=== PATIENT | female | born 1975 | race Caucasian/White ===

== ENCOUNTER 2023-11-23 06:20 | Day surgery (SDC) | payer OTHER, SELFPAY ==
[2023-10-29 08:59] LABS: Hematocrit 39.3 % (37.0-47.0); Mean Corp Hgb Conc. 33.1 g/dL (33.0-37.0); Mean Corpuscular Volume 81.5 fL (81.0-99.0); Mean Platelet Volume 10.7 fL (7.4-10.4); Platelet Count 384 10^3/uL (130-400); Red Blood Cell Count 4.82 10^6/uL (4.20-5.40); Red Cell Dist. Width 13.1 % (11.5-14.5); White Blood Cell Count 8.8 10^3/uL (4.8-10.8)
[2023-10-29 09:32] LABS: ALT (SGPT) 22 U/L (0-35); AST (SGOT) 25 U/L (14-36); Albumin 4.1 g/dl (3.5-5.0); Alkaline Phosphatase 72 U/L (38-126); Blood Urea Nitrogen 18 mg/dl (7-17); Carbon Dioxide 22 mmol/L (22-30); Chloride 108 mmol/L (98-107); Glucose 78 mg/dl (70-99); Potassium 4.1 mmol/L (3.5-5.1); Sodium 138 mmol/L (135-145); Total Bilirubin 0.7 mg/dl (0.2-1.3); Total Protein 6.7 g/dl (6.3-8.2); eGFR > 60.00
[2023-11-23] MEDS: TYLENOL 1000 MG PO (10:28)
[2023-11-23] MEDS: NORMOSOL-R 1000 IV (10:28)
[2023-11-23 10:29] LABS: Glucose - Point of Care 111 mg/dl (70-99)
[2023-11-23 14:12] LABS: Glucose - Point of Care 140 mg/dl (70-99)
[2023-11-23] MEDS: DILAUDID 0.5 MG IV (14:21)
[2023-11-23] MEDS: DILAUDID 0.25 MG IV (14:38)
[2023-11-23] MEDS: ROXICODONE 5 MG PO (15:45)
== END 2023-11-23 16:50 | disposition home or self-care (01) ==
LOC: SDS 06:20
PROVIDERS: ATTENDING PHYSICIAN Surgery; FAMILY PHYSICIAN Nurse Practitioner Adult Health
DX: K80.10 Calculus of gallbladder with chronic cholecystitis without obstruction (principal); K66.0 Peritoneal adhesions (postprocedural) (postinfection)
CPT/HCPCS: 47563; 88304; 36415; 74300; 76000; 80053; 82962; 85027; 93005

== ENCOUNTER → 2023-12-03 06:45 | Outpatient (REF) | payer OTHER, SELFPAY | LOC: HWRAD 06:45 | PROVIDERS: ATTENDING PHYSICIAN Nurse Practitioner Adult Health | DX: E04.1 Nontoxic single thyroid nodule (principal) | CPT/HCPCS: 76536 ==

== ENCOUNTER → 2023-12-26 09:24 | Outpatient (REF) | payer OTHER, SELFPAY ==
[2023-12-26 10:12] VITALS: BP 117/79; BP_SYST 76
== END ==
LOC: RADI 09:24
PROVIDERS: ATTENDING PHYSICIAN Nurse Practitioner Adult Health
DX: E04.1 Nontoxic single thyroid nodule (principal)
CPT/HCPCS: 88173; 10005

== ENCOUNTER → 2024-08-06 09:46 | Outpatient (REF) | payer BC, SELFPAY | LOC: HWWDC 09:46 | PROVIDERS: ATTENDING PHYSICIAN Advanced Practice Midwife; FAMILY PHYSICIAN Nurse Practitioner Adult Health; REFERRING PHYSICIAN Obstetrics & Gynecology | DX: Z12.31 Encounter for screening mammogram for malignant neoplasm of breast (principal); N95.0 Postmenopausal bleeding | CPT/HCPCS: 76830; 76856; 77063; 77067 ==

== ENCOUNTER 2024-11-21 06:15 | Day surgery (SDC) | payer BC, SELFPAY ==
[2024-11-17 11:19] LABS: Hematocrit 40.2 % (37.0-47.0); Mean Corp Hgb Conc. 32.3 g/dL (33.0-37.0); Mean Corpuscular Hgb 27.3 pg (27.0-31.0); Mean Corpuscular Volume 84.3 fL (81.0-99.0); Mean Platelet Volume 10.7 fL (7.4-10.4); Platelet Count 334 10^3/uL (130-400); Red Blood Cell Count 4.77 10^6/uL (4.20-5.40); Red Cell Dist. Width 13.3 % (11.5-14.5); White Blood Cell Count 8.7 10^3/uL (4.8-10.8)
[2024-11-17 12:14] LABS: Blood Urea Nitrogen 18 mg/dl (7-17); Calcium 9.4 mg/dl (8.4-10.2); Carbon Dioxide 26 mmol/L (22-30); Chloride 103 mmol/L (98-107); Glucose 96 mg/dl (70-99); Potassium 4.2 mmol/L (3.5-5.1); Sodium 140 mmol/L (135-145); eGFR > 60.00
[2024-11-17 14:14] VITALS: BMI 36.4
[2024-11-21 08:17] VITALS: BMI 36.4
[2024-11-21 08:30] VITALS: BMI 36.4
[2024-11-21] MEDS: TYLENOL 1000 MG PO (08:39)
[2024-11-21 08:45] VITALS: BP 134/79
[2024-11-21 08:57] LABS: Glucose - Point of Care 103 mg/dl (70-99)
[2024-11-21] MEDS: NORMOSOL-R/PLASMALYTE-A 1000 IV (08:59)
[2024-11-21 10:54] VITALS: BP 131/78; BP 134/79
[2024-11-21 11:00] VITALS: BP 127/79
[2024-11-21 11:15] VITALS: BP 113/76
[2024-11-21 11:32] LABS: Glucose - Point of Care 97 mg/dl (70-99)
[2024-11-21 11:45] VITALS: BP 116/66
[2024-11-21 12:00] VITALS: BP 112/71
== END 2024-11-21 12:20 | disposition home or self-care (01) ==
LOC: SDS 06:15
PROVIDERS: ATTENDING PHYSICIAN Obstetrics & Gynecology; FAMILY PHYSICIAN Nurse Practitioner Adult Health
DX: N84.1 Polyp of cervix uteri (principal); N95.0 Postmenopausal bleeding
CPT/HCPCS: 58558; 88305; 36415; 80048; 82962; 85027; 86850; 86900; 86901; 93005